=== PATIENT | female | born 1940 | race African-American/Black ===

== ENCOUNTER 2024-03-06 21:43 | Emergency (ER) | payer MEDICARE, SELFPAY ==
--- NOTE | ~2024-03-06 | XR_ITS ---
EXAMINATION: XR chest 2V Exam Date/Time: 03/06/2024 22:36 MEDICAL RECORD CONSULTANT HISTORY: SOB Comparison: None. RESULT: Lines, tubes, and devices: Loop recorder. Right upper quadrant surgical clips. Lungs and pleura: Diffuse reticular opacities and mild fissural fluid. Bibasilar segmental and subse gmental airspace opacities. Mild bilateral costophrenic angle blunting. Apparent hemidiaphragm flatte yoel likely secondary to emphysematous change. Cardiomediastinal silhouette: Unremarkable. Other: No acute osseous or upper abdominal finding. IMPRESSION: Mild interstitial edema with small bilateral pleural effusions. Bilateral dependent airspace opacitie s likely represent atelectasis. Infection is not excluded. Reviewed, dictated and finalized at location K. CAL RECORD CONSULTANT IMPRESSION: Mild interstitial edema with small bilateral pleural effusions. Bilateral depen dent airspace opacities likely represent atelectasis. Infection is not excluded .
--- NOTE | 2024-03-06 21:48 | ECG_ITS ---
Test Date: 2024-03-06 21:56:56 Measurements Intervals [place] Rate: 72 P: 37 MA: 209 QRS: 7 QRSD: 108 T: 56 QT: 437 QTc: 481 Interpretive Statements SINUS RHYTHM WITH FREQUENT VENTRICULAR PREMATURE COMPLEXES POSSIBLE LEFT ATRIAL ENLARGEMENT [-0.1mV P WAVE IN V1/V2] SEPTAL MYOCARDIAL INFARCTION , OF INDETERMINATE AGE [40+ ms Q WAVE IN V1/V2] ABNORMAL ECG Electronically Signed On 03-07-2024 10:46:04 FORESTRY ENGINEER by Shai Maldonado M.D.
[2024-03-06 21:50] VITALS: BP 155/92; PULSE 77; RESP 16; TEMP 35.6; O2SAT 95
[2024-03-06 22:08] LABS: Basophils Percent Auto 0.6 % (0.2-1.2); Eosinophils Percent Auto 0.9 % (0-4.4); Hematocrit 30.7 % (37.0-47.0); Hemoglobin 10.1 g/dL (12.0-15.0); Immature Granulocyte Absolute 0.01 K/mm3 (0.00-0.031); Immature Granulocyte Percent A 0.3 % (0-0.5); Lymphocytes Percent Auto 40.2 % (18.3-44.2); Mean Corpuscular HGB Conc 32.9 g/dl (32-36); Mean Corpuscular Hemoglobin 28.2 pg (26-34); Mean Corpuscular Volume 85.8 fl (80-100); Mean Platelet Volume 11.9 fl (7.4-10.4); Monocytes Absolute Auto 0.2 K/mm3 (0.1-0.6); Monocytes Percent Auto 6.9 % (2.6-8.5); Neutrophils Absolute Auto 1.8 K/mm3 (1.3-6.7); Neutrophils Percent Auto 51.1 % (45.5-73.1); Nucleated Red Blood Cells Perc 0.9 % (0.0-0.2); Platelet Count Result 181 k/mm3 (150-375); Red Blood Count 3.58 M/mm3 (4.2-5.4); Red Cell Distribution Width 15.9 % (11.5-14.5); White Blood Count 3.5 K/mm3 (4.5-10.0)
[2024-03-06 22:21] LABS: Alanine Aminotransferase 48 U/L (6-35); Alkaline Phosphatase 103 U/L (38-126); Anion Gap 8 mmol/L (4-12); Aspartate Amino Transferase 53 U/L (14-36); Bilirubin,Total 0.5 mg/dL (0.2-1.3); Blood Urea Nitrogen 42 mg/dL (7-17); Calcium 10.4 mg/dL (8.4-10.2); Carbon Dioxide 28 mmol/L (22-30); Chloride 111 mmol/L (98-107); Estimated CRCL calculation 26 ml/min; Estimated Glomerular Filt Rate 49; Glucose 92 mg/dL (65-110); Potassium 5.3 mmol/L (3.4-5.0); Sodium 147 mmol/L (137-145)
[2024-03-06 22:44] LABS: Influenza A QL RT-PCR Negative (Negative); Influenza B QL RT-PCR Negative (Negative); RSV RNA, RT-PCR Negative (Negative); SARS-CoV-2 RNA PCR Negative (Negative)
[2024-03-06 23:55] VITALS: BP 129/85; PULSE 78; RESP 16; O2SAT 97
--- NOTE | 2024-03-07 03:22 | ED.GENADULT ---
HPI - General Adult General Chief complaint: Shortness of Breath/Dyspnea Stated complaint: shortness of breath x 2 days Time Seen by Provider: 03/07/24 02:52 History of Present Illness HPI narrative: 83-year-old female present to the emergency department for evaluation for shortness breath for the last 3 days. Does report generalized weakness gait instability today. Patient denies any falls or injuries. Patient denies any current chest pain and patient does not appear short of breath at this time. Patient is saturating well on room air. Patient does have history hypertension and high cholesterol Related Data Home Medications ?Medication ?Instructions ?Recorded ?Confirmed ?Last Taken ?Type amlodipine 10 mg tablet 15 mg PO DAILY 12/25/18 12/31/18 12/31/18 06:30 History latanoprost 0.005 % eye drops 1 drp ophthalmic (eye) QPM 12/25/18 12/31/18 12/30/18 21:00 History omega 3-ekz-gkj-fish oil 1,000 mg 1 cap PO DAILY 12/25/18 12/31/18 12/29/18 History (120 mg-180 mg) capsule (Fish Oil) timolol 0.25 % eye drops 1 drp ophthalmic (eye) Q12H 12/25/18 12/31/18 12/31/18 06:30 History aspirin 81 mg tablet,delayed 81 mg PO DAILY 12/31/18 12/31/18 12/29/18 History release (Aspir-) Allergies Allergy/AdvReac Type Severity Reaction Status Date / Time No Known Allergies Allergy Verified 03/06/24 21:43 Review of Systems Review of Systems: All systems reviewed & are unremarkable except as noted in HPI and below PMFSH Past Medical History Medical History (Updated 03/07/24 @ 03:28 by Stanton Willis MD) Hypertension Exam Narrative: APPEARANCE: Well appearing, no pain, no distress, well-nourished. HEAD: normocephalic, atraumatic. EYES: PERRLA/EOMI, conjunctivae clear. NOSE: Normal no drainage EARS:TMS clear with good light reflex. THROAT: Pharynx clear, no exudate. NECK: Supple. No adenopathy, no masses. RESPIRATORY: Airway patent, respirations nonlabored. Clear to auscultation bilaterally, no rales, rhonchi, wheezing. CARDIOVASCULAR: Regular rate and rhythm without murmurs rubs or gallops. ABDOMINAL: Soft, nontender, nondistended, normal bowel sounds MUSCULOSKELETAL: Moves all extremities. Strength/ROM intact, No edema, No calf tenderness. NEURO: Alert. Cranial nerves II through XII intact. Grossly intact SKIN: Warm, dry. Normal Color Course Vital Signs Vital signs: Vital Signs Temperature 96.1 F L 03/06/24 21:50 Pulse Rate 77 03/06/24 21:50 Respiratory Rate 16 03/06/24 21:50 Blood Pressure 155/92 H 03/06/24 21:50 Pulse Oximetry 95 03/06/24 21:50 Temperature 96.1 F L 03/06/24 21:50 Pulse Rate 76 03/07/24 04:10 Respiratory Rate 16 03/07/24 04:10 Blood Pressure 132/68 03/07/24 04:10 Pulse Oximetry 97 03/07/24 04:10 Oxygen Delivery Room Air 03/07/24 04:09 Medical Decision Making MDM Narrative Medical decision making narrative: 83-year-old female presented to the emergency department for evaluation for shortness of breath. Patient is afebrile with no leukocytosis and hemoglobin of 10.1. Patient did have an elevated potassium of 5.3. Patient was treated with a dose Lasix. Patient will also be started on Augmentin and azithromycin for concern for underlying respiratory infection. Patient family were updated on the results of the workup. Patient was comfortable with plan for discharge and close follow-up Differential Diagnosis Differential Diagnosis: CHF, pneumonia, COVID, RSV, influenza Vital Signs Vital Signs: Vital Signs Temperature 96.1 F L 03/06/24 21:50 Pulse Rate 77 03/06/24 21:50 Respiratory Rate 16 03/06/24 21:50 Blood Pressure 155/92 H 03/06/24 21:50 Pulse Oximetry 95 03/06/24 21:50 Temperature 96.1 F L 03/06/24 21:50 Pulse Rate 76 03/07/24 04:10 Respiratory Rate 16 03/07/24 04:10 Blood Pressure 132/68 03/07/24 04:10 Pulse Oximetry 97 03/07/24 04:10 Oxygen Delivery Room Air 03/07/24 04:09 Lab Data Lab results reviewed: Yes I reviewed the patient's lab results. 03/06/24 22:00 03/06/24 22:00 Labs: Lab Results 03/06/24 Range/Units 22:00 WBC 3.5 L (4.5-10.0) K/mm3 RBC 3.58 L (4.2-5.4) M/mm3 Hgb 10.1 L (12.0-15.0) g/dL Hct 30.7 L (37.0-47.0) % MCV 85.8 (80-100) fl MCH 28.2 (26-34) pg MCHC 32.9 (32-36) g/dl RDW 15.9 H (11.5-14.5) % Plt Count 181 (150-375) k/mm3 MPV 11.9 H (7.4-10.4) fl Immature Gran % (Auto) 0.3 (0-0.5) % Neut % (Auto) 51.1 (45.5-73.1) % Lymph % (Auto) 40.2 (18.3-44.2) % [place] % (Auto) 6.9 (2.6-8.5) % Eos % (Auto) 0.9 (0-4.4) % Baso % (Auto) 0.6 (0.2-1.2) % Lymph # (Auto) 1.40 (0.9-3.2) K/mm3 [place] # (Auto) 0.2 (0.1-0.6) K/mm3 Eos # (Auto) 0.0 (0-0.3) K/mm3 Baso # (Auto) 0.0 (0.0-0.1) K/mm3 Abs Immat Gran (auto) 0.01 (0.00-0.031) K/mm3 Absolute Neuts (auto) 1.8 (1.3-6.7) K/mm3 Absolute Nucleated RBC 0.030 H (0.0-0.012) K/mm3 Nucleated RBC % 0.9 H (0.0-0.2) % Sodium 147 H (137-145) mmol/L Potassium 5.3 H (3.4-5.0) mmol/L Chloride 111 H (98-107) mmol/L Carbon Dioxide 28 (22-30) mmol/L Anion Gap 8 (4-12) mmol/L BUN 42 H (7-17) mg/dL Creatinine 1.26 H (0.7-1.0) mg/dL Estim Creat Clear Calc 26 ml/min Estimated GFR 49 L (59 - ) Glucose 92 (65-110) mg/dL Calcium 10.4 H (8.4-10.2) mg/dL Total Bilirubin 0.5 (0.2-1.3) mg/dL AST 53 H (14-36) U/L ALT 48 H (6-35) U/L Alkaline Phosphatase 103 (38-126) U/L NT-Pro-B Natriuret Pep 3940 H (19.9-100) pg/mL Total Protein 8.0 (6.3-8.2) g/dL Albumin 4.0 (3.5-5.1) g/dL Influenza A (RT-PCR) Negative (Negative) Influenza B (RT-PCR) Negative (Negative) RSV (RT-PCR) Negative (Negative) SARS-CoV-2 RNA (RT-PCR) Negative (Negative) Imaging Data Radiologist's impression: Impressions Chest X-Ray 03/06/24 22:57 IMPRESSION: Mild interstitial edema with small bilateral pleural effusions. Bilateral dependent airspace opacities likely represent atelectasis. Infection is not excluded. ECG Data EKG #1: EKG Interpretation: normal rate, sinus rhythm, PVCs, normal QRS and NL axis Discharge Plan Discharge Clinical Impression: Pulmonary edema, Pneumonia Patient Disposition: Home, Self-Care Condition: Stable Instructions: Antibiotic Form, Pneumonia (ED) Additional Instructions: You were treated with a single dose of Lasix in the emergency department. You were also started on antibiotics for a suspected underlying pneumonia. Continue the antibiotics at home. Have close follow-up with primary care physician. If you have any worsening symptoms then please call or return to the emergency department. Patient Language: [place] Prescriptions: New azithromycin 250 mg tablet See Rx Instructions .ROUTE .COMPLEX Qty: 6 0RF Rx Instructions: For 250 mg dose pack: take 500 mg today (day 1), then 250 mg for 4 days (days 2-5) amoxicillin-pot clavulanate 875-125 mg tablet 1 tablet PO Q12H 7 Days Qty: 14 0RF No Action latanoprost 0.005 % Drops 1 drp OPHTHALMIC (EYE) QPM amlodipine 10 mg Tablet 15 mg PO DAILY timolol 0.25 % Drops 1 drp OPHTHALMIC (EYE) Q12H omega 1-apz-amq-fish oil [Fish Oil] 1,000 mg (120 mg-180 mg) Capsule 1 cap PO DAILY aspirin [Aspir-81] 81 mg Tablet,Delayed Release (Dr/Ec) 81 mg PO DAILY Follow-up/Referrals: Alissa,Mandeep Guerrero MD [Primary Care Provider] -
[2024-03-07 03:30] LABS: NT Pro B Type Natriuretic Pept 3940 pg/mL (19.9-100)
[2024-03-07] MEDS: AMOXICILLIN/CLAVULANATE K 875-125 MG TAB 1 TABLET PO (04:07)
[2024-03-07] MEDS: AZITHROMYCIN 250 MG TABLET 500 MG PO (04:07)
[2024-03-07] MEDS: FUROSEMIDE 20 MG TABLET PO (04:07)
[2024-03-07 04:08] VITALS: O2SAT 98
[2024-03-07 04:09] VITALS: O2SAT 98
[2024-03-07 04:10] VITALS: BP 132/68; PULSE 76; RESP 16; O2SAT 97
== END 2024-03-07 04:22 | disposition home or self-care (01) ==
PROVIDERS: Emergency Medicine; Emergency Provider Emergency Medicine; PCP Internal Medicine
DX: J18.9 Pneumonia, unspecified organism (principal); J81.1 Chronic pulmonary edema; Z20.822 Contact with and (suspected) exposure to COVID-19; I10 Essential (primary) hypertension; E78.00 Pure hypercholesterolemia, unspecified; I49.3 Ventricular premature depolarization; R94.31 Abnormal electrocardiogram [ECG] [EKG]
CPT/HCPCS: 36415; 71046; 80053; 83880; 85025; 87637; 93005; 99284; A9270